=== PATIENT | female | born 1980 | race Caucasian/White ===

== ENCOUNTER 2017-07-24 09:05 | Day surgery (SDC) | payer OTHER ==
[~2017-07-24] VITALS: Ht 175.3 cm; Wt 77.1 kg
--- NOTE | 2017-07-24 11:30 | NUR ---
07/24/17 Danny9 Veronica Pan 1124-PATIENT ARRIVED TO PACU ON 6L MASK O2 SAT 100% PATIENT AWAKE DENIES PAIN OR NAUSEA. HALEY PAD IN PLACE CDI WITH MESH UNDERWEAR. SR. LEFT GROIN ABCESS DRAINED BY DR. HENAO WILL PLACE HEAT COMPRESS.
--- NOTE | 2017-07-24 12:23 | NUR ---
PT IS BACK TO DS FROM PACU. SHE IS A&O. SHE REPORTS ON THE RIGHT SIDE IN ONE SPOT, LIKE A CRAMP. IS AT THE BEDSIDE. CALL LIGHT WITHIN REACH. WATER AT THE BEDSIDE. NO OTHER C/O'S AT THIS TIME. WILL REASSESS WITHIN THE HOUR.
[2017-07-24] MEDS ORDERED: DILAUDID2 MG PO (12:47)
[2017-07-24] MEDS ORDERED: IBUPROFEN800 MG PO (12:47)
--- NOTE | 2017-07-24 13:20 | NUR ---
AMB TO BATHROOM AND BACK BY SELF. VOID W/O DIFFICULTY. DRESSED WITH ASSISTANCE. SHWETHA WELL. DENIES C/O OR NEEDS AT THIS TIME. IV DC'D CATH INTACT SITE BENIGN. VERBAL/WRITTEN DC INSTRUCITONS GIVEN. PT STATED/SIGNED UNDERSTANDING. LEFT UNIT VIA WC WITH PERSONAL BELONGINGS.
--- NOTE | 2017-07-26 11:14 | OR ---
[address] [address] Signed DATE OF OPERATION: 07/24/2017 SURGEON: Annie Henao MD PREOPERATIVE DIAGNOSES: 1. Menometrorrhagia. 2. Dysmenorrhea. 3. Left groin subcutaneous abscess. POSTOPERATIVE DIAGNOSES: 1. Menometrorrhagia. 2. Dysmenorrhea. 3. Left groin subcutaneous abscess. 4. Endometrial polyps. PROCEDURE: Hysteroscopy, dilation and curettage with endometrial ablation using the NovaSure apparatus. SURGEON: Annie Henao MD ANESTHESIA: IV sedation per Candace Newell CRNA. IV FLUIDS: 1250 mL of lactated Ringer's. URINE OUTPUT: 100 mL straight cath. ESTIMATED BLOOD LOSS: 20 mL. FINDINGS: 9 cm uterus. PATHOLOGY: Endometrial curettings. Electronically Signed By: ANNIE HENAO MD 07/26/17 1114 PATIENT NAME: STANLEY HURST OPERATIVE REPORT DATE OF : 82 PHYSICIAN: ANNIE HENAO MD REPORT #: [id number] REPORT IS CONFIDENTIAL AND NOT TO BE RELEASED WITHOUT AUTHORIZATION [address] [address] Signed COMPLICATIONS: No complications. PROCEDURE TECHNIQUE: The patient was taken to the operating room with IV fluids hanging. She was placed on the operating table in the supine position, underwent IV sedation and then was repositioned into dorsal lithotomy position with candy-cane stirrups. At that time examination of the left groin subcutaneous abscess was performed. It was draining and was palpated and expressed and further drainage of pussy-type material came out and felt as if the abscess is subsiding and once that was expressed of purulent discharge, I could get no further material out of it. The patient was then prepped and draped in the normal sterile fashion and a sterile weighted speculum was placed into the vagina. A curved retractor was used to visualize the patient's cervix and a single-tooth tenaculum was placed onto the anterior lip of the cervix. The uterus was then sounded to 9 cm and then serially dilated with smooth Willy dilators. A 5 mm hysteroscope was then placed and good visualization of the uterine cavity was noted. There were multiple areas that appeared to be polypoid-type tissue throughout the cavity and both ostia were visualized. Photos were taken. The hysteroscope was then removed and sharp curettage was performed with a serrated curette. The endometrial curettings were passed off for pathology. Once a good uterine cry was achieved, all instruments were then removed and the NovaSure sound was then placed at the cervix and approximately 1.5 cm cervix and 7.5 cm uterine size was noted as the length with a 3.1 cm width. Once the NovaSure apparatus was actually placed where the wand was placed into the uterine cavity, measured to 3.1 cm width, the array itself was not discharged for approximately 1-1/2 minutes when the ablation was completed and it was inspected, found to be well charred and smoking and this was a NovaSure array. All instruments were then removed. The anterior cervix had tenaculum on the anterior lip, which was removed and a sponge stick was used to clean up all blood and debris at the perineum. The patient was then awakened and taken to recovery room in stable condition. All sponge and instrument counts were correct. Annie Henao MD JKM/MODL /[id number] Electronically Signed By: ANNIE HENAO MD 07/26/17 1114 PATIENT NAME: STANLEY HURST OPERATIVE REPORT DATE OF : 82 PHYSICIAN: ANNIE HENAO MD REPORT #: [id number] REPORT IS CONFIDENTIAL AND NOT TO BE RELEASED WITHOUT AUTHORIZATION [address] [place], [place] [address] Signed cc: Baldemar Clements MD Electronically Signed By: ANNIE HENAO MD 07/26/17 1114 PATIENT NAME: STANLEY HURST OPERATIVE REPORT DATE OF : 82 PHYSICIAN: ANNIE HENAO MD REPORT #: [id number] REPORT IS CONFIDENTIAL AND NOT TO BE RELEASED WITHOUT AUTHORIZATION
== END 2017-07-24 13:15 | disposition home or self-care (01) ==
LOC: DS 09:05
PROVIDERS: Obstetrics & Gynecology
PROC: 0U5B8ZZ Destruction of Endometrium, Via Natural or Artificial Opening Endoscopic (ICD-10-PCS; principal; 2017-07-24 10:15)
DX: N84.0 Polyp of corpus uteri (principal); D64.9 Anemia, unspecified; F41.1 Generalized anxiety disorder; G43.909 Migraine, unspecified, not intractable, without status migrainosus; M19.90 Unspecified osteoarthritis, unspecified site; Z87.442 Personal history of urinary calculi; Z88.5 Allergy status to narcotic agent; Z88.8 Allergy status to other drugs, medicaments and biological substances; Z90.89 Acquired absence of other organs; Z98.890 Other specified postprocedural states; Z79.899 Other long term (current) drug therapy
CPT/HCPCS: 00952; J1100; J1885; J2250; J2405; J2704; J3010; J7120